=== PATIENT | female | born 1980 | race Caucasian/White ===

== ENCOUNTER 2018-01-18 11:02 | Inpatient (IN) | payer OTHER ==
[~2018-01-18] VITALS: Ht 170.2 cm; Wt 55.3 kg
[~2018-01-18 11:02] MED LIST: ALBUTEROL SULF8.5 GM INH; CIPROFLOXACIN250 MG PO; DEPAKENE250 MG PO; IBUPROFEN600 MG ORAL; KLONOPIN1 MG PO; NKM; NORCO 5-325 TA1 EACH ORAL; PROPRANOLOL HCL20 MG ORAL; ZANTAC150 MG ORAL
[2018-01-18] MEDS ORDERED: Morphine Sulfate 4mg/ml Inj (IV/IM USE ONLY) ONE (11:13)
[2018-01-18] MEDS ORDERED: levETIRAcetam 500 MG in D5W 110 ML IV ONE (11:15)
[2018-01-18] MEDS ORDERED: LORazepam Inj 2mg/ml 1ml IV ONE (11:15)
[2018-01-18 11:30] LABS: BASOPHILS % (AUTO) 0.9 % (0.0-2.0); EOSINOPHILS % (AUTO) 1.6 % (0.0-3.0); HEMATOCRIT 45.2 % (37.0-47.0); LYMPHOCYTES % (AUTO) 35.2 % (20.0-45.0); MEAN CORPUSCULAR VOLUME 89 FL (80-99); MONOCYTES % (AUTO) 8.6 % (1.0-10.0); NEUTROPHILS % (AUTO) 53.8 % (45.0-75.0); PLATELET COUNT 281 K/UL (150-450); RED BLOOD COUNT 5.08 M/UL (4.20-5.40); RED CELL DISTRIBUTION WIDTH 10.5 % (11.6-14.8); WHITE BLOOD COUNT 7.4 K/UL (4.8-10.8)
[2018-01-18 11:38] LABS: ALANINE AMINOTRANSFERASE 25 U/L (12-78); ALBUMIN 3.7 G/DL (3.4-5.0); ALBUMIN/GLOBULIN RATIO 0.8 (1.0-2.7); ALKALINE PHOSPHATASE 85 U/L (46-116); ANION GAP 13 mmol/L (5-15); ASPARTATE AMINO TRANSFERASE 41 U/L (15-37); BILIRUBIN,TOTAL 0.4 MG/DL (0.2-1.0); BLOOD UREA NITROGEN 13 mg/dL (7-18); CARBON DIOXIDE 22 MMOL/L (21-32); CHLORIDE 106 MMOL/L (98-107); CREATININE 0.9 MG/DL (0.55-1.30); POTASSIUM 5.1 MMOL/L (3.5-5.1); SODIUM 141 MMOL/L (136-145)
[2018-01-18 12:53] LABS: APPEARANCE,URINE CLEAR; BILIRUBIN, URINE NEGATIVE (NEGATIVE); COLOR,URINE PALE YELLOW; GLUCOSE, URINE (UA) 3+ (NEGATIVE); KETONES,URINE NEGATIVE (NEGATIVE); LEUKOCYTE ESTERASE ,URINE 1+ (NEGATIVE); NITRITE,URINE NEGATIVE (NEGATIVE); PH,URINE 7 (4.5-8.0); PROTEIN,URINE NEGATIVE (NEGATIVE); UROBILINOGEN,URINE NORMAL MG/DL (0.0-1.0)
[2018-01-18 12:54] VITALS: BP 138/84
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
[2018-01-18] MEDS ORDERED: Mylanta II UD 30ml ORAL PRN (16:15)
[2018-01-18] MEDS ORDERED: Morphine Sulfate 2mg/ml Inj IVP PRN (16:16)
[2018-01-18 17:30] VITALS: BP 113/64
[2018-01-18] MEDS: LORazepam Inj 2mg/ml 1ml IV PRN (19:48)
[2018-01-18 20:00] VITALS: BP 128/60
[2018-01-18] MEDS ORDERED: Zolpidem 5mg tab ORAL PRN (21:00)
[2018-01-18] MEDS ORDERED: Heparin 5000 units/ml inj SUBQ SCH (21:00)
[2018-01-18] MEDS ORDERED: Miralax 17gm pkt ORAL PRN (21:00)
--- NOTE | 2018-01-18 21:26 | Consultation ---
Consult Note Consult Note NEUROLOGY CONSULTATION: Full note dictated #[id number] 37 y/o, RH, CF with PH of polysubstance abuse, ovarian cancer, seizure disorder that started 10 years ago - type unknown, who has been on various different meds with no medicine that has worked better than others. She stopped her Vimpat and Topamax a few days ago as she was having "black-outs." ON EXAM: Mild memory problems. IMPRESSION: Seizure disorder - type unknown with possibly partial and generalized seizures in the past. REC: Continue Keppra 1.5 G q 12 hours. EEG Observe Kayden Murphy M.D., M.S.P.KAYDEN HEAD Jan 18, 2018 21:26
--- NOTE | 2018-01-18 22:00 | Consultation ---
DATE OF CONSULTATION: 01/18/2018 NEUROLOGY CONSULTATION CONSULTING PHYSICIAN: Son Murphy M.D. REQUESTING PHYSICIAN: Pj Guidry D.O. HISTORY: Ms. Shelby Blackwood is a 37-year-old, right-handed, lady, who does have a past history of polysubstance abuse, ovarian cancer, and a seizure disorder that started approximately 10 years ago. Over the years, her seizures have been under variable control. She has been on various different medicines including Dilantin, Keppra, Depakote, Topamax, Vimpat, Tegretol and all of them have worked for some time and then stopped working. She was on a combination of Vimpat 100 mg twice a day and Topamax 25 mg 3 times a day until a few days ago when she started to have what she calls "blackouts." She would have periods where the mind would become confused and she would not be able to communicate normally. As a result of that, she thought that she was toxic on the drugs and stopped taking both the Vimpat and Topamax. She then presented to the [facility] emergency room today. At this point in time, she feels relatively well. She denies any weakness on one side or the other, numbness on one side or the other, problems with speech, problems with language, problems with vision, problems with memory, or other neurological symptoms. PAST MEDICAL HISTORY: Significant for polysubstance drug abuse, ovarian cancer, and seizure disorder for the last 10 years. The exact type of seizure disorder is unclear. FAMILY HISTORY: Nothing significant. PERSONAL HISTORY: Home: She lives with her . Work: She has never worked in her lifetime. Habits: She denies use of alcohol, tobacco, or illicit drugs at this point in time, but in the past, she used to use any drug she could get a hold on and her drug of choice was crack. MEDICATIONS: Present medications in the hospital include Ambien p.r.n., MiraLAX p.r.n., heparin for DVT prophylaxis, Keppra 1.5 grams q.12 hours, Zofran p.r.n., Tylenol p.r.n., morphine p.r.n., Mylanta p.r.n., and Ativan p.r.n. PHYSICAL EXAMINATION: GENERAL: She is a well-developed, well-nourished, obese, lady, lying in bed, in no acute distress. VITAL SIGNS: Pulse 96 per minute, blood pressure 128/60 mmHg, respirations 20 per minute, and temperature 97 degrees Fahrenheit. HEAD: Normocephalic and atraumatic. EENT: Examination benign. NECK: No neck rigidity was observed. NEUROLOGIC EXAMINATION: MENTAL STATUS EXAMINATION: She was awake and alert. She was oriented to person, place, and time. She was able to recall 3/3 words immediately after 1 minute and after 3 minutes on the second trial. She was able to remember Presidents Trump through [place] [employer], but could not remember Presidents prior to that. Her mathematical skills were fairly good. Her visuospatial function was preserved. SPEECH: She had no dysarthria. LANGUAGE: She had no aphasia. CRANIAL NERVE EXAMINATION: II: The visual lawrence were intact on confrontation testing. III, IV & : The external ocular movements were full and the pupils 3 mm in diameter, equal, round, regular, and reactive to light. V: She had normal facial sensations, and the temporales, masseters, and pterygoids functioned normally. VII: She had normal facial expressions and no facial asymmetry. VIII: She was able to hear well bilaterally and had no nystagmus. IX: The palate moved symmetrically on phonation. X: She had no hoarseness of voice. XI: The sternocleidomastoids and trapezii function normally. XII: The tongue was in the midline without any fasciculations or atrophy. MOTOR SYSTEM: The tone was normal in all four extremities. Examination of muscle mass revealed no focal wasting. Examination of power revealed G 5/5 power in all muscle groups tested. SENSORY EXAMINATION: She had intact sensations to pinprick, light touch, and graphesthesia. COORDINATION: She performed well on [id number]-iz-[id number] and glfd-pk-ardt testing. REFLEXES: 2+ and bilaterally symmetrical at the biceps, triceps, brachioradialis, knees, and ankles. The plantar responses were flexor bilaterally. STANCE: She had a normal stance. GAIT: She tended to drag her right leg when she walks and that was related to knee pain. DIAGNOSTIC IMPRESSION: 1. Ms. Shelby Blackwood is a 37-year-old, right-handed, lady, with a past history of polysubstance abuse, ovarian cancer, and a seizure disorder for the last 10 years, that has been poorly controlled, as she has been tried on different medicines, which she feels lose efficacy. Her last therapeutic regimen consisted of Vimpat 100 mg twice a day and Topamax 25 mg 3 times a day, but she started to have what she calls blackouts as a result of which she stopped taking both the medicines and then came to the hospital with episodes of possible seizures. 2. On neurological examination at this time, she does demonstrate mild problems with memory, but the rest of her neurological examination is benign. 3. Laboratory data obtained thus far have revealed a relatively normal CBC, a relatively normal chemistry panel, toxicology screen positive for benzodiazepines, and urinalysis with 1+ leukocyte esterase, 2-4 red blood cells, and 0-2 white blood cells per high-power field. 4. The patient's history and neurological examination are most compatible with a seizure disorder, the exact type of which is unclear at this point in time. As per her , she has had what seem to be generalized tonic clonic seizures and focal dyscognitive seizures in the past. RECOMMENDATIONS: 1. Agree with management thus far. 2. We will continue her on Keppra 1.5 G q 12 hours. 3. An EEG will be performed to better delineate the type of seizure disorder. 4. The patient will be observed closely and depending on how she fares, further recommendations will be given. Thank you for entrusting me with the care of Ms. Blackwood. I shall follow her with you. Son Murphy M.D., M.S.P.H. DR: AIDA JOB#: [id number] ALEIDA
[2018-01-19] VITALS (18 sets, daily range): BP systolic 86–127; BP diastolic 46–94
[2018-01-19 07:12] LABS: EOSINOPHILS % (AUTO) 2.9 % (0.0-3.0); HEMATOCRIT 40.1 % (37.0-47.0); HEMOGLOBIN 13.8 G/DL (12.0-16.0); MEAN CORPUSCULAR VOLUME 89 FL (80-99); MONOCYTES % (AUTO) 11.3 % (1.0-10.0); NEUTROPHILS % (AUTO) 38.8 % (45.0-75.0); PLATELET COUNT 248 K/UL (150-450); RED BLOOD COUNT 4.49 M/UL (4.20-5.40); RED CELL DISTRIBUTION WIDTH 10.7 % (11.6-14.8); WHITE BLOOD COUNT 5.4 K/UL (4.8-10.8)
[2018-01-19 07:24] LABS: ALANINE AMINOTRANSFERASE 19 U/L (12-78); ALBUMIN 2.9 G/DL (3.4-5.0); ALBUMIN/GLOBULIN RATIO 0.7 (1.0-2.7); ALKALINE PHOSPHATASE 72 U/L (46-116); ANION GAP 7 mmol/L (5-15); ASPARTATE AMINO TRANSFERASE 5 U/L (15-37); BILIRUBIN,TOTAL 0.2 MG/DL (0.2-1.0); BLOOD UREA NITROGEN 15 mg/dL (7-18); CALCIUM 8.8 MG/DL (8.5-10.1); CARBON DIOXIDE 27 MMOL/L (21-32); CHLORIDE 107 MMOL/L (98-107); SODIUM 141 MMOL/L (136-145)
[2018-01-19] MEDS: LORazepam Inj 2mg/ml 1ml IV PRN ×2 (08:55→09:18)
[2018-01-19] MEDS ORDERED: Mylanta II UD 30ml ORAL PRN (10:15)
[2018-01-19] MEDS ORDERED: Morphine Sulfate 2mg/ml Inj IVP PRN (10:15)
[2018-01-19] MEDS ORDERED: LORazepam Inj 2mg/ml 1ml IV PRN (10:15)
[2018-01-19] MEDS: Heparin 5000 units/ml inj SUBQ SCH ×2 (10:38→20:44)
[2018-01-19] MEDS ORDERED: levETIRAcetam 1,500 MG in D5W 95 ML IVPB STA (17:45)
--- NOTE | 2018-01-19 17:45 | Neurology Progress Note ---
Interim History Interim History Interim History Ms. Blackwood feels very well. She apparently had 3 generalized tonic clonic seizures this morning and had to be transferred to the ICU after she was given Ativan 4 mg IV. She has been seizure free since then and did not have much of a post-ictal state as per her nurse. She wants to get out of the ICU. Review of Systems Neuro Review of Systems Benign. Objective Physical Exam Last Vital Signs Date Time Temp Pulse Resp B/P (MAP) Pulse Ox O2 Delivery O2 Flow Rate FiO2 01/19/18 16:00 Room Air 01/19/18 16:00 97.9 63 15 127/94 (105) 100 97.9 01/19/18 12:00 2.0 Laboratory Tests Test 01/19/18 05:20 White Blood Count 5.4 K/UL (4.8-10.8) Red Blood Count 4.49 M/UL (4.20-5.40) Hemoglobin 13.8 G/DL (12.0-16.0) Hematocrit 40.1 % (37.0-47.0) Mean Corpuscular Volume 89 FL (80-99) Mean Corpuscular Hemoglobin 30.7 PG (27.0-31.0) Mean Corpuscular Hemoglobin Concent 34.3 G/DL (32.0-36.0) Red Cell Distribution Width 10.7 % (11.6-14.8) L Platelet Count 248 K/UL (150-450) Mean Platelet Volume 6.5 FL (6.5-10.1) Neutrophils (%) (Auto) 38.8 % (45.0-75.0) L Lymphocytes (%) (Auto) 46.0 % (20.0-45.0) H Monocytes (%) (Auto) 11.3 % (1.0-10.0) H Eosinophils (%) (Auto) 2.9 % (0.0-3.0) Basophils (%) (Auto) 1.0 % (0.0-2.0) Sodium Level 141 MMOL/L (136-145) Potassium Level 4.0 MMOL/L (3.5-5.1) Chloride Level 107 MMOL/L (98-107) Carbon Dioxide Level 27 MMOL/L (21-32) Anion Gap 7 mmol/L (5-15) Blood Urea Nitrogen 15 mg/dL (7-18) Creatinine 1.0 MG/DL (0.55-1.30) Estimat Glomerular Filtration Rate > 60 mL/min (>60) Glucose Level 95 MG/DL (74-106) Calcium Level 8.8 MG/DL (8.5-10.1) Total Bilirubin 0.2 MG/DL (0.2-1.0) Aspartate Amino Transf (AST/SGOT) 5 U/L (15-37) L Alanine Aminotransferase (ALT/SGPT) 19 U/L (12-78) Alkaline Phosphatase 72 U/L (46-116) Total Protein 6.9 G/DL (6.4-8.2) Albumin 2.9 G/DL (3.4-5.0) L Globulin 4.0 g/dL Albumin/Globulin Ratio 0.7 (1.0-2.7) L Neurologic Exam Objective PHYSICAL EXAMINATION: GENERAL: She is a well-developed, well-nourished, obese, lady, lying in bed, in no acute distress. HEAD: Normocephalic and atraumatic. EENT: Examination benign. NECK: No neck rigidity was observed. NEUROLOGIC EXAMINATION: MENTAL STATUS EXAMINATION: She was awake and alert. She was oriented to person, place, and time. She was able to recall 3/3 words immediately after 1 minute and after 3 minutes on the second trial. She was able to remember Presidents Trump through [place] [employer], but could not remember Presidents prior to that. Her mathematical skills were fairly good. Her visuospatial function was preserved. SPEECH: She had no dysarthria. LANGUAGE: She had no aphasia. CRANIAL NERVE EXAMINATION: II: The visual lawrence were intact on confrontation testing. III, IV & : The external ocular movements were full and the pupils 3 mm in diameter, equal, round, regular, and reactive to light. V: She had normal facial sensations, and the temporales, masseters, and pterygoids functioned normally. VII: She had normal facial expressions and no facial asymmetry. VIII: She was able to hear well bilaterally and had no nystagmus. IX: The palate moved symmetrically on phonation. X: She had no hoarseness of voice. XI: The sternocleidomastoids and trapezii function normally. XII: The tongue was in the midline without any fasciculations or atrophy. MOTOR SYSTEM: The tone was normal in all four extremities. Examination of muscle mass revealed no focal wasting. Examination of power revealed G 5/5 power in all muscle groups tested. SENSORY EXAMINATION: She had intact sensations to pinprick, light touch, and graphesthesia. COORDINATION: She performed well on txszgb-gx-owcw and tzdn-eb-rxce testing. REFLEXES: 2+ and bilaterally symmetrical at the biceps, triceps, brachioradialis, knees, and ankles. The plantar responses were flexor bilaterally. STANCE & GAIT: Were deferred. Impression/Recommendations Diagnostic Impression 1. Ms. Shelby Blackwood is a 37-year-old, right-handed, lady, with a past history of polysubstance abuse, ovarian cancer, and a seizure disorder for the last 10 years, that has been poorly controlled, as she has been tried on different medicines, which she feels lose efficacy. Her last therapeutic regimen consisted of Vimpat 100 mg twice a day and Topamax 25 mg 3 times a day, but she started to have what she calls blackouts as a result of which she stopped taking both the medicines and then came to the hospital with episodes of possible seizures. 2. She feels very well. She apparently had 3 generalized tonic clonic seizures this morning and had to be transferred to the ICU after she was given Ativan 4 mg IV. She has been seizure free since then and did not have much of a post-ictal state as per her nurse. She wants to get out of the ICU. 3. On neurological examination at this time, she does demonstrate mild problems with memory, but the rest of her neurological examination is benign. 4. Laboratory data obtained thus far have revealed a relatively normal CBC, a relatively normal chemistry panel, toxicology screen positive for benzodiazepines, and urinalysis with 1+ leukocyte esterase, 2-4 red blood cells , and 0-2 white blood cells per high-power field. 5. The EEG done on 01/18/18 was normal in the awake, drowsy and sleep states. 6. The patient's history and neurological examination are most compatible with a seizure disorder, the exact type of which is unclear at this point in time. As per her , she has had what seem to be generalized tonic clonic seizures and focal dyscognitive seizures in the past. She did have a flurry of seizures this morning. Recommendations 1. Continue present management. 2. Continue Keppra 1.5 G q 12 hours. 3. Extra dose of Keppra 1.5 G IV now. 4. Observe closely in ICU overnight. Kayden Vazquez M.D., M.S.P.H. KAYDEN VAZQUEZ Jan 19, 2018 17:45
[2018-01-19] MEDS ORDERED: levETIRAcetam 1,000mg/NS100ml 100 ML IVPB SCH (18:00)
[2018-01-19] MEDS ORDERED: levETIRAcetam 500mg/NS100ml IVPB SCH (18:15)
--- NOTE | 2018-01-19 19:40 | Cardiology Report ---
APPROVED REPORT EKG Measurement Heart [id number] Normal sinus rhythm Low voltage QRS Borderline ECG
[2018-01-19] MEDS ORDERED: Miralax 17gm pkt ORAL PRN (21:00)
[2018-01-19] MEDS ORDERED: Zolpidem 5mg tab ORAL PRN (21:00)
--- NOTE | 2018-01-19 21:00 | History and Physical Report ---
DATE OF ADMISSION: 01/18/2018 TIME SEEN: At 1 p.m. CONSULTANTS: 1. Milton Jarquin M.D. 2. Son Murphy M.D. CHIEF COMPLAINT: Seizure x2. BRIEF HISTORY: This is a 37-year-old female, who lives at home with history of seizures. She was started on Vimpat per her neurologist. Apparently about a month ago, she started having some blackouts, thought it was attributable to Vimpat. She stopped it on her own. For the past 2 days, she has been having intermittent seizures. The patient was brought to [place] last night for the above and admitted to medical floor for further treatment. She had recurrent seizures after dialysis and transferred to ICU. Currently, O2 via NC, calm in bed, slightly weak, no complaint. REVIEW OF SYSTEMS: No chest pain. No shortness of breath. No nausea, vomiting, or diarrhea. PAST MEDICAL HISTORY: Seizure. PAST SURGICAL HISTORY: None. ALLERGIES: Tegretol or carbamazepine, phenytoin, Bactrim. MEDICATIONS: Include MiraLAX, Ambien, Zofran, Mylanta, heparin, Keppra, Ativan, morphine, Tylenol. SOCIAL HISTORY: No smoking. No alcohol. No intravenous drug abuse. FAMILY HISTORY: Noncontributory. PHYSICAL EXAMINATION: GENERAL: Calm in bed, slightly tired, oriented x3, in no acute distress. VITAL SIGNS: Temperature is 98 degrees, pulse 65, respirations 18, blood pressure 106/63. CARDIOVASCULAR: No murmur. LUNGS: Distant and clear. ABDOMEN: Bowel sounds positive. Nontender, nondistended. EXTREMITIES: Show no cyanosis or edema. NEUROLOGIC: The patient moves all extremities, slightly weak. LABORATORY AND DIAGNOSTIC DATA: Labs at this time show CBC is normal. BMP shows AST 5, albumin 2.9, otherwise BMP is normal. Urine HCG is negative. Urinalysis shows 3+ glucose, 1+ leukocyte esterase. Urine tox is positive for benzo. Tylenol less than 2. Valproic less than 3. less than 0.5. ASSESSMENT: Seizure off medications, weakness, UTI. PLAN: Antibiotics p.r.n. Seizure control. Restart seizure medications. Actually, care of the patient will be transferred to Dr. Shane due to insurance. He will follow going forward. Pj Guidry D.O. DR: Sol JOB#: [id number] CC:
[2018-01-20] VITALS (24 sets, daily range): BP systolic 82–128; BP diastolic 51–82
--- NOTE | 2018-01-20 01:00 | Electroencephalogram ---
EEG REPORT DATE OF PROCEDURE: 01/18/2018 HISTORY: This EEG was performed on a 37-year-old lady with a 10-year history of seizures. The seizures described by her as being generalized tonic-clonic seizures at times and focal dyscognitive seizures at others. The purpose of this EEG was to better delineate the type of seizure disorder. TECHNICAL NOTE: This EEG was performed on a [employer] Unit with electrodes placed on the scalp according to the International 10-20 system. Cuulw-wu-jphkr and mnhtm-ra-nnf montages were used. The EEG was technically satisfactory and was performed in the awake, drowsy, and sleep states. OBSERVATIONS: In the best awake state, which was exceedingly brief, the background activity consisted of 8.5-9 Hz alpha activity. Drowsiness was characterized by dissolution of the alpha rhythm and the appearance of slower frequencies in the 5-6 Hz theta range. Stage II sleep was characterized by further slowing of the background in the delta and theta range, the presence of vertex waves, and 14-16 Hz sleep spindles. No focal abnormalities or epileptiform discharges were seen. IMPRESSION: Normal, awake, drowsy, and stage II sleep EEG. COMMENT: Normal EEG does not rule out a seizure disorder. Son Murphy M.D., M.S.P.H. DR: Aj JOB#: [id number] MTDD
[2018-01-20] MEDS: Heparin 5000 units/ml inj SUBQ SCH ×2 (09:16→21:21)
--- NOTE | 2018-01-20 16:50 | Neurology Progress Note ---
Interim History Interim History Interim History Ms. Blackwood feels very well. She has been seizure-free since yesterday. She wants to get out of the ICU and go home. She is tolerating the Keppra well. She denies any new neurologic symptoms. Review of Systems Neuro Review of Systems Benign. Objective Physical Exam Last Vital Signs Date Time Temp Pulse Resp B/P (MAP) Pulse Ox O2 Delivery O2 Flow Rate FiO2 01/20/18 16:00 71 22 117/66 (83) 99 01/20/18 12:00 98.2 98.2 01/20/18 09:00 Room Air 01/19/18 12:00 2.0 Neurologic Exam Objective PHYSICAL EXAMINATION: GENERAL: She is a well-developed, well-nourished, obese, lady, lying in bed, in no acute distress. HEAD: Normocephalic and atraumatic. EENT: Examination benign. NECK: No neck rigidity was observed. NEUROLOGIC EXAMINATION: MENTAL STATUS EXAMINATION: She was awake and alert. She was oriented to person, place, and time, except for the exact date. She was able to recall 3/3 words immediately after 1 minute and after 3 minutes on the second trial. She was able to remember Presidents Trump through [employer], but could not remember Presidents prior to that. Her mathematical skills were fairly good. Her visuospatial function was preserved. SPEECH: She had no dysarthria. LANGUAGE: She had no aphasia. CRANIAL NERVE EXAMINATION: II: The visual lawrence were intact on confrontation testing. III, IV & : The external ocular movements were full and the pupils 3 mm in diameter, equal, round, regular, and reactive to light. V: She had normal facial sensations, and the temporales, masseters, and pterygoids functioned normally. VII: She had normal facial expressions and no facial asymmetry. VIII: She was able to hear well bilaterally and had no nystagmus. IX: The palate moved symmetrically on phonation. X: She had no hoarseness of voice. XI: The sternocleidomastoids and trapezii function normally. XII: The tongue was in the midline without any fasciculations or atrophy. MOTOR SYSTEM: The tone was normal in all four extremities. Examination of muscle mass revealed no focal wasting. Examination of power revealed G 5/5 power in all muscle groups tested. SENSORY EXAMINATION: She had intact sensations to pinprick, light touch, and graphesthesia. COORDINATION: She performed well on [id number] and cvhd-[id number]-epft testing. REFLEXES: 2+ and bilaterally symmetrical at the biceps, triceps, brachioradialis, knees, and ankles. The plantar responses were flexor bilaterally. STANCE & GAIT: Were normal. Impression/Recommendations Diagnostic Impression 1. Ms. Shelby Blackwood is a 37-year-old, right-handed, lady, with a past history of polysubstance abuse, ovarian cancer, and a seizure disorder for the last 10 years, that has been poorly controlled, as she has been tried on different medicines, which she feels lose efficacy. Her last therapeutic regimen consisted of Vimpat 100 mg twice a day and Topamax 25 mg 3 times a day, but she started to have what she calls blackouts as a result of which she stopped taking both the medicines and then came to the hospital with episodes of possible seizures. 2. She feels very well. She has been seizure-free since yesterday. She wants to get out of the ICU and go home. She is tolerating the Keppra well. She denies any new neurologic symptoms. 3. On neurological examination at this time, she does demonstrate mild problems with memory, but the rest of her neurological examination is benign. 4. Laboratory data obtained on my initial evaluation revealed a relatively normal CBC, a relatively normal chemistry panel, toxicology screen positive for benzodiazepines, and urinalysis with 1+ leukocyte esterase, 2-4 red blood cells , and 0-2 white blood cells per high-power field. 5. The EEG done on 01/18/18 was normal in the awake, drowsy and sleep states. 6. The patient's history and neurological examination are most compatible with a seizure disorder, the exact type of which is unclear at this point in time. As per her 's description, she has had what seem to be generalized tonic clonic seizures and focal dyscognitive seizures in the past. She did have a flurry of seizures on 01/19/18. Recommendations 1. Continue present management. 2. Continue Keppra 1.5 G q 12 hours. 3. Relatively safe to go home. 4. Follow up with personal Neurologist in near future. Kayden Vazquez M.D., M.S.P.H. KAYDEN VAZQUEZ Jan 20, 2018 16:50
[2018-01-21] VITALS (12 sets, daily range): BP systolic 86–135; BP diastolic 50–75
[2018-01-21] MEDS ORDERED: LORazepam Inj 2mg/ml 1ml IV PRN (07:15)
[2018-01-21] MEDS ORDERED: Mylanta II UD 30ml ORAL PRN (08:00)
[2018-01-21] MEDS ORDERED: Morphine Sulfate 2mg/ml Inj IVP PRN ×2 (08:00→19:45)
[2018-01-21] MEDS: Heparin 5000 units/ml inj SUBQ SCH ×2 (08:25→21:23)
--- NOTE | 2018-01-21 09:01 | General Progress Note ---
Assessment/Plan Problem List: (1) Uncontrolled seizures ICD Codes: R56.9 - Unspecified convulsions SNOMED: 72923085 Status: stable, progressing Assessment/Plan sz rx per neuro pt/ot dc when cleared by neuro Subjective ROS Limited/Unobtainable: No Constitutional: Reports: no symptoms HEENT: Reports: no symptoms Cardiovascular: Reports: no symptoms Respiratory: Reports: no symptoms Gastrointestinal/Abdominal: Reports: no symptoms Genitourinary: Reports: no symptoms Neurologic/Psychiatric: Reports: seizure Endocrine: Reports: no symptoms Hematologic/Lymphatic: Reports: no symptoms Allergies: Coded Allergies: PHENYTOIN SODIUM (Verified Allergy, Mild, ITCHINESS, PASSING OUT, 04/26/12) PHENYTOIN SODIUM EXTENDED (Verified Allergy, Mild, ITCHINESS, PASSING OUT , 04/26/12) SULFAMETHOXAZOLE (Verified Allergy, Mild, HIVES, 04/26/12) TRIMETHOPRIM (Verified Allergy, Mild, HIVES, 04/26/12) CARBAMAZEPINE (Verified Allergy, Unknown, 10/06/14) All Systems: reviewed and negative except above Subjective no complaints. feels "good". no szs for >24 hrs Objective Last 24 Hour Vital Signs Date Time Temp Pulse Resp B/P (MAP) Pulse Ox O2 Delivery O2 Flow Rate FiO2 01/21/18 08:00 Room Air 01/21/18 08:00 97.3 76 20 110/75 (87) 96 01/21/18 07:00 60 18 102/64 (77) 97 01/21/18 06:00 53 18 108/64 (79) 97 01/21/18 05:00 66 16 110/59 (76) 97 01/21/18 05:00 65 16 107/59 (75) 96 01/21/18 04:00 65 01/21/18 04:00 98.8 60 16 95/61 (72) 97 01/21/18 03:00 57 16 106/69 (81) 97 01/21/18 02:00 67 16 86/55 (65) 97 01/21/18 01:00 65 16 106/61 (76) 97 01/21/18 00:00 97.8 66 21 96/50 (65) 96 01/21/18 00:00 64 01/20/18 23:00 64 21 91/56 (68) 96 01/20/18 22:00 64 21 95/58 (70) 100 01/20/18 21:00 Room Air 01/20/18 21:00 63 21 108/68 (81) 100 01/20/18 20:00 64 01/20/18 20:00 98.0 65 21 110/60 (77) 100 01/20/18 19:00 65 20 128/82 (97) 100 01/20/18 18:00 61 20 114/73 (87) 99 01/20/18 17:00 67 22 114/60 (78) 99 01/20/18 16:00 71 22 117/66 (83) 99 01/20/18 16:00 65 01/20/18 15:00 84 19 113/64 (80) 99 01/20/18 14:00 74 19 117/64 (81) 99 01/20/18 13:00 81 19 113/67 (82) 94 01/20/18 12:00 98.2 68 16 112/55 (74) 97 98.2 01/20/18 12:00 68 01/20/18 11:00 75 19 102/51 (68) 99 01/20/18 10:00 76 18 120/78 (92) 100 Intake and Output 01/20/18 01/21/18 18:59 06:59 Intake Total 300 ml 250 ml Output Total 350 ml Balance 300 ml -100 ml Intake Oral 300 ml 250 ml Other 0 ml 0 ml Output Urine Total 350 ml # Voids 2 # Bowel Movements 2 2 Height (Feet): 5 Height (Inches): 7.00 Weight (Pounds): 122 General Appearance: WD/WN, alert Neck: supple Cardiovascular: normal rate Respiratory/Chest: lungs clear Abdomen: normal bowel sounds, non tender, soft, no organomegaly Edema: no edema noted Arm (L), no edema noted Arm (R), no edema noted Leg (L), no edema noted Leg (R), no edema noted Pedal (L), no edema noted Pedal (R), no edema noted Generalized Neurologic: institutional custodian II-XII grossly normal, alert, oriented x 3, responsive Duarte Shane MD Jan 21, 2018 09:01
--- NOTE | 2018-01-21 17:48 | Neurology Progress Note ---
Interim History Interim History Interim History Ms. Blackwood feels very well. She continues to be seizure-free. She was moved out of the ICU this morning. She is eager to go home. She is tolerating the Keppra well. She denies any new neurologic symptoms. Review of Systems Neuro Review of Systems Benign. Objective Physical Exam Last Vital Signs Date Time Temp Pulse Resp B/P (MAP) Pulse Ox O2 Delivery O2 Flow Rate FiO2 01/21/18 16:00 Room Air 01/21/18 16:00 79 01/21/18 15:43 98.1 20 115/50 (71) 97 01/19/18 12:00 2.0 Neurologic Exam Objective PHYSICAL EXAMINATION: GENERAL: She is a well-developed, well-nourished, obese, lady, lying in bed, in no acute distress. HEAD: Normocephalic and atraumatic. EENT: Examination benign. NECK: No neck rigidity was observed. NEUROLOGIC EXAMINATION: MENTAL STATUS EXAMINATION: She was awake and alert. She was oriented to person, place, and time, except for the exact date. She was able to recall 3/3 words immediately after 1 minute and after 3 minutes on the second trial. She was able to remember Presidents Trump through [place] [employer], but could not remember Presidents prior to that. Her mathematical skills were fairly good. Her visuospatial function was preserved. SPEECH: She had no dysarthria. LANGUAGE: She had no aphasia. CRANIAL NERVE EXAMINATION: II: The visual lawrence were intact on confrontation testing. III, IV & : The external ocular movements were full and the pupils 3 mm in diameter, equal, round, regular, and reactive to light. V: She had normal facial sensations, and the temporales, masseters, and pterygoids functioned normally. VII: She had normal facial expressions and no facial asymmetry. VIII: She was able to hear well bilaterally and had no nystagmus. IX: The palate moved symmetrically on phonation. X: She had no hoarseness of voice. XI: The sternocleidomastoids and trapezii function normally. XII: The tongue was in the midline without any fasciculations or atrophy. MOTOR SYSTEM: The tone was normal in all four extremities. Examination of muscle mass revealed no focal wasting. Examination of power revealed G 5/5 power in all muscle groups tested. SENSORY EXAMINATION: She had intact sensations to pinprick, light touch, and graphesthesia. COORDINATION: She performed well on [id number] and yfhv-wd-vfdg testing. REFLEXES: 2+ and bilaterally symmetrical at the biceps, triceps, brachioradialis, knees, and ankles. The plantar responses were flexor bilaterally. STANCE & GAIT: Were normal. Impression/Recommendations Diagnostic Impression 1. Ms. Shelby Blackwood is a 37-year-old, right-handed, lady, with a past history of polysubstance abuse, ovarian cancer, and a seizure disorder for the last 10 years, that has been poorly controlled, as she has been tried on different medicines, which she feels lose efficacy. Her last therapeutic regimen consisted of Vimpat 100 mg twice a day and Topamax 25 mg 3 times a day, but she started to have what she calls blackouts as a result of which she stopped taking both the medicines and then came to the hospital with episodes of possible seizures. 2. She feels very well. She continues to be seizure-free. She was moved out of the ICU this morning. She is eager to go home. She is tolerating the Keppra well. She denies any new neurologic symptoms. 3. On neurological examination at this time, she does demonstrate mild problems with memory, but the rest of her neurological examination is benign. 4. Laboratory data obtained on my initial evaluation revealed a relatively normal CBC, a relatively normal chemistry panel, toxicology screen positive for benzodiazepines, and urinalysis with 1+ leukocyte esterase, 2-4 red blood cells , and 0-2 white blood cells per high-power field. 5. The EEG done on 01/18/18 was normal in the awake, drowsy and sleep states. 6. The patient's history and neurological examination are most compatible with a seizure disorder, the exact type of which is unclear at this point in time. As per her 's description, she has had what seem to be generalized tonic clonic seizures and focal dyscognitive seizures in the past. She did have a flurry of seizures on 01/19/18. Recommendations 1. Continue present management. 2. Continue Keppra 1.5 G q 12 hours. 3. Relatively safe to go home. 4. Follow up with personal Neurologist in near future. Kayden Vazquez M.D., M.S.P.[facility]. KAYDEN VAZQUEZ Jan 21, 2018 17:48
[2018-01-21] MEDS ORDERED: Zolpidem 5mg tab ORAL PRN (21:00)
[2018-01-21] MEDS ORDERED: Miralax 17gm pkt ORAL PRN (21:00)
[2018-01-22] VITALS: BP 94/54
[2018-01-22 04:00] VITALS: BP 99/60
[2018-01-22 08:00] VITALS: BP 126/82
[2018-01-22] MEDS ORDERED: KEPPRA500 MG ORAL (08:22)
[2018-01-22] MEDS: Heparin 5000 units/ml inj SUBQ SCH (08:46)
[2018-01-22] MEDS ORDERED: D5 1/2NS 1000ml IV ONE (09:41)
--- NOTE | 2018-01-24 12:01 | Discharge Summary ---
Discharge Summary Discharge Summary _ DATE OF ADMISSION: 01/18/2018 DATE OF DISCHARGE: 01/22/2018 REASON FOR ADMISSION: 37 years old female with past medical history of ovarian cancer, status post oophorectomy, history of seizure disorder, presented with uncontrolled seizure episodes. Patient recently had her seizure medications changed. She was not tolerating it and was having blackouts. Patient had been at the outpatient clinic, while she started to have a seizure episode. En route to emergency department, patient had multiple seizures episodes. She was given Versed intranasally . Upon arrival to ED, she was actively seizing . Patient reported noncompliance with new medications since was not able to tolerate them. Upon evaluation patient was placed initially on 100% nonrebreathing mask , otherwise vital signs were stable. Laboratory workup was essentially unremarkable : no leukocytosis, stable hemoglobin and hematocrit, stable renal parameters, electrolytes. Serum HCG test was negative. Urine toxicology screen was positive for benzodiazepine . Serum Depakote and Tegretol levels were subtherapeutic. Patient admitted with diagnosis of uncontrolled seizure. CONSULTANTS: neurologist Dr. Murphy HOSPITAL COURSE: Patient admitted initially to ICU. Seizure precautions were maintained. Patient was continued on Keppra. Neurologist closely followed. No further seizure activity in the hospital under current anti-convulsant regimen. Patient was tolerating Keppra well , no new neurological symptoms. EEG was normal in the awake, drowsy and sleep states. Per neurologist, patient history and neurological examination were most compatible with seizure disorder, the exact type of which was unclear at that point. As per her 's description, patient appeared to had generalized tonic- clonic seizure and focal discognitive seizure in the past. Neurologist recommended continue Keppra 1.5 g every 12 hours . Neurologist recommended to follow up with her personal neurologist in the near future. DVT prophylaxis provided. Patient was working for physical and occupational therapists. Fall precautions maintained. Bowel regimen instituted . Supportive care provided . Patient stabilized and was ready for discharge home. FINAL DIAGNOSES: Uncontrolled seizure Seizure disorder DISCHARGE MEDICATIONS: See Medication Reconciliation list. DISCHARGE INSTRUCTIONS: Patient was discharged home. Patient to follow-up with her own neurologist. I have been assigned to dictate discharge summary for this account. I was not involved in the patient's management. Patrizia Fernández NP Jan 24, 2018 12:00
== END 2018-01-22 09:42 | disposition home or self-care (01) | DRG 53 ==
LOC: EDBD 11:02 → EMR 11:35 → ENRESERV 15:17 → 2E 17:21 → EDBEDREQ 17:49 → 2E 18:06 → ICU 01-19 10:02 → 2W 01-21 07:19
DX: G40.909 Epilepsy, unspecified, not intractable, without status epilepticus (principal); F15.11 Other stimulant abuse, in remission; Z85.43 Personal history of malignant neoplasm of ovary; Z88.6 Allergy status to analgesic agent; Z88.8 Allergy status to other drugs, medicaments and biological substances; Z91.14 Patient's other noncompliance with medication regimen; Z90.722 Acquired absence of ovaries, bilateral; Z91.81 History of falling
CPT/HCPCS: 36415; 80053; 80156; 80164; 80299; 80307; 80329; 81003; 82962; 84703; 85025; 93005; 95819; 96361; 96374; 96375; 99285